=== PATIENT | male | born 1955 | race Native Hawaiian/Other Pacific Islander ===

== ENCOUNTER 2017-02-08 13:00 | Inpatient (IN) | payer OTHER ==
[2017-02-08] VITALS (13 sets, daily range): BP systolic 127–193; BP diastolic 64–98; TEMP 98.3–98.9
[~2017-02-08] VITALS: Ht 175.3 cm; Wt 79.6 kg
[~2017-02-08 13:00] MED LIST: ALUMSUS6 PO; AMANTADINE100 M1 PO; AMLO2.5T PO; ARGINAID PO; ASPIRIN ADULT L81 MG PO; BENZ1TAB43 PO; BENZTROPINE2 MG PO; BUSP5TAB2 PO; BUSPIRONE10 MG PO; CELEXA40 MG PO; CLON0.5T36 PO; CLON1TAB18 PO; DEPAKENE250 MG/5 M PO; DEXT50IN8 IV; DIPH50IN IM; DIPH50IN INJ; DIVA500T2 PO; FIBER LAXATIV0.52 GM PO; FISH OIL1000 M1 PO; FSBS ID; HALO5INJ3 IM; INSTA-GLUCOSE40 % PO; INSUINJ20 SC; LAMICTAL25 MG PO; LORA2INJ21 INJ; MAG OXIDE400 M2 PO; METFORMIN HCL500 M1 PO; MULTIVITAMI1 PO; POTASSIUM CHLO10 ME2 OR; PROTONIX20 MG PO; PROVERA10 MG PO; RISP1TAB PO; RISP25IN IM; SCOP1.5D TD; SEROQUEL25 MG PO; SEROQUEL300 MG PO; SEROQUEL50 MG PO; SOD CHLORIDE1 GM PO; SPIRIVA IN; TRAM50TA PO; TYLENOL325 MG PO; VASOTEC5 MG PO; ZIPR20CA PO; ZIPR80CA PO; [UNRECOGNIZED DRUG - OTHER] PO; [UNRECOGNIZED DRUG - OTHER] PO
[2017-02-08 17:03] LABS: PARTIAL THROMBOPLASTIN TIME 27.9 SECONDS (24.5-33.6)
[2017-02-08] MEDS ORDERED: HALO5TAB10 PO (19:00)
[2017-02-08] MEDS ORDERED: MAGNSUS68 PO (19:01)
[2017-02-08] MEDS ORDERED: OLAN10INJ IM (19:03)
[2017-02-08] MEDS ORDERED: PHENERGAN50 MG PR (19:04)
[2017-02-08] MEDS ORDERED: NOVOLIN R U-1001 ML IJ (19:07)
[2017-02-09] VITALS (23 sets, daily range): BP systolic 107–194; BP diastolic 61–95; TEMP 97.8–100.6
[2017-02-09 05:58] LABS: POTASSIUM 4.6 mmol/L (3.6-5.2)
[2017-02-09 06:11] LABS: PLATELET COUNT 408 K/uL (142-355)
[2017-02-10] VITALS (18 sets, daily range): BP systolic 109–218; BP diastolic 59–97; TEMP 99–99.7
[2017-02-10 06:42] LABS: PLATELET COUNT 427 K/uL (142-355)
[2017-02-10 06:48] LABS: SODIUM 136 mmol/L (136-145)
[2017-02-10 06:49] LABS: POTASSIUM 5.6 mmol/L (3.6-5.2)
[2017-02-10 23:58] LABS: POTASSIUM 4.1 mmol/L (3.6-5.2)
[2017-02-11] VITALS (7 sets, daily range): BP systolic 148–185; BP diastolic 72–105; TEMP 9.2
[2017-02-11 06:05] LABS: PLATELET COUNT 421 K/uL (142-355)
[2017-02-11 06:49] LABS: POTASSIUM 4.1 mmol/L (3.6-5.2)
[2017-02-12] VITALS (8 sets, daily range): BP systolic 100–179; BP diastolic 74–113; TEMP 97.3–99.8
[2017-02-12 06:50] LABS: POTASSIUM 4.1 mmol/L (3.6-5.2); SODIUM 132 mmol/L (136-145)
[2017-02-12 06:57] LABS: PLATELET COUNT 400 K/uL (142-355)
[2017-02-13 07:27] LABS: PLATELET COUNT 428 K/uL (142-355)
[2017-02-13 07:44] LABS: POTASSIUM 4.6 mmol/L (3.6-5.2); SODIUM 129 mmol/L (136-145)
[2017-02-13 09:40] VITALS: BP 135/85
[2017-04-05] MEDS ORDERED: METH5TAB13 PO (13:37)
[2017-04-05] MEDS ORDERED: PROVERA5 MG OR (13:41)
[2017-04-05] MEDS ORDERED: TRILEPTAL150 MG OR (13:42)
[2017-04-05] MEDS ORDERED: LATUDA40 MG OR (13:46)
[2017-04-05] MEDS ORDERED: LAMICTAL200 MG OR (13:46)
[2017-04-05] MEDS ORDERED: ADDERALL10 MG PO (13:47)
[2017-04-21] MEDS ORDERED: METH10TA64 PO (22:50)
[2017-04-21] MEDS ORDERED: BUSP15TAB2 PO (22:50)
[2017-04-21] MEDS ORDERED: BUSP5TAB2 PO (22:50)
[2017-04-21] MEDS ORDERED: MEDR2.5T19 PO (22:50)
[2017-04-21] MEDS ORDERED: SOD CHLORIDE1 GM PO ×2 (22:50→22:51)
[2017-04-21] MEDS ORDERED: BLOOMIS59 PO (22:50)
[2017-04-21] MEDS ORDERED: MAGN400T4 PO (22:50)
[2017-04-21] MEDS ORDERED: OXCARBAZEPIN300 MG PO ×2 (22:51)
[2017-04-22] MEDS ORDERED: RISP25IN IM (11:41)
[2017-05-20] MEDS ORDERED: INSU100P SC (18:43)
[2017-05-20] MEDS ORDERED: VRAYLAR3 MG PO (18:43)
[2017-05-20] MEDS ORDERED: MULTTAB52 PO (18:43)
[2017-05-20] MEDS ORDERED: VALPROIC ACID10 ML PO ×2 (18:43)
[2017-05-20] MEDS ORDERED: ASCO500T18 PO (18:43)
[2017-05-20] MEDS ORDERED: SILV1CRE TOP (18:43)
[2017-05-20] MEDS ORDERED: ZINC220C4 PO (18:43)
[2017-05-20] MEDS ORDERED: SCOP1.5D TD (18:43)
[2017-05-20] MEDS ORDERED: BENZ1TAB43 PO (18:58)
== END 2017-02-13 11:15 | disposition other institution (70) | DRG 603 ==
LOC: ICU 13:00
PROVIDERS: ADMIT Emergency Medicine
DX: L03.114 Cellulitis of left upper limb (principal); E87.1 Hypo-osmolality and hyponatremia; L03.113 Cellulitis of right upper limb; I10 Essential (primary) hypertension; R94.31 Abnormal electrocardiogram [ECG] [EKG]; F28 Other psychotic disorder not due to a substance or known physiological condition; E11.9 Type 2 diabetes mellitus without complications; F17.210 Nicotine dependence, cigarettes, uncomplicated; E83.42 Hypomagnesemia; R94.5 Abnormal results of liver function studies
CPT/HCPCS: 36415; 80048; 80053; 80202; 81000; 82550; 82962; 83605; 83735; 84484; 85007; 85027; 85610; 85651; 85730; 87040; 87070; 87077; 87088; 87185; 87186; 87205; 93005; 94760; 96372; J0360; J0515; J1200; J1630; J1650; J1815; J1956; J2060; J2250; J2405; J3370; J3475; J3486; J3490; J7120; Q9963